=== PATIENT | male | born 1965 | race Caucasian/White ===

== ENCOUNTER 2018-01-26 05:43 | Emergency (ER) | payer BC ==
[2018-01-26] MEDS: diazePAM 5 MG TABLET PO (06:23)
== END 2018-01-26 07:50 | disposition home or self-care (01) ==
LOC: ER 05:43
DX: M79.605 Pain in left leg (principal); M79.604 Pain in right leg; G47.00 Insomnia, unspecified; Z90.89 Acquired absence of other organs
CPT/HCPCS: 93970; 99284

== ENCOUNTER 2018-06-09 09:19 | Emergency (ER) | payer BC ==
[~2018-06-09] VITALS: Ht 193 cm; Wt 122.5 kg
[~2018-06-09 09:19] MED LIST: ZOLP10TA PO
[2018-06-09] MEDS ORDERED: MORPHINE SULFATE 4 MG/ML VIAL. IV ONE (10:15)
--- NOTE | 2018-06-09 10:31 | RAD ---
Examination: PA view the chest with left RIBS HISTORY: History of left-sided rib pain, felt a pop while skiing last night COMPARISON: None available FINDINGS: Low lung volumes and technique accentuates heart size and pulmonary vascularity. Mild bibasilar lung airspace opacities likely atelectasis. No evidence of displaced left rib fracture identified. There is probable old left posterior 10th rib fracture. IMPRESSION: 1. No evidence of displaced left rib fracture. 2. Probable old posterior left 10th rib fracture. Electronically signed by: Jean-Claude Guzman MD (06/09/2018 10:27 AM) [facility]
--- NOTE | 2018-06-09 10:45 | PHYS DOC ---
Past Medical History Past Medical History: Diabetes-Type II, Other Additional Past Medical Histor: PE,GLEOBLASTOMA,NEUROPATHY Past Surgical History: Appendectomy, Other Additional Past Surgical Histo: CRANIOTOMY X'S 2. Alcohol Use: Rarely Drug Use: None Adult General Chief Complaint Chief Complaint: RIB PAIN HPI HPI Patient is a 52 year old male with history of diabetes type 2, glioblastoma diagnosed 1 year ago who presents today complaining of mild pain to the left lateral ribs that began yesterday when he turned around in bed. Patient states he believes he pulled a muscle. He states he heard a pop sound from the left ribs. He states he has previous history of rib fracture on the left side. Patient denies falling. Denies any chest pain or shortness of breath. Patient is currently on Xaletro. Review of Systems Review of Systems Constitutional: Denies fever or chills [] Eyes: Denies change in visual acuity, redness, or eye pain [] HENT: Denies nasal congestion or sore throat [] Respiratory: Reports left rib pain. Denies cough or shortness of breath [] Cardiovascular: No additional information not addressed in HPI [] GI: Denies abdominal pain, nausea, vomiting, bloody stools or diarrhea [] : Denies dysuria or hematuria [] Musculoskeletal: Denies back pain or joint pain [] Integument: Denies rash or skin lesions [] Neurologic: Denies headache, focal weakness or sensory changes [] All other systems were reviewed and found to be within normal limits, except as documented in this note. Current Medications Current Medications Current Medications Medications (Trade) Dose Ordered Sig/[facility] Start Time Stop Time Status Last Admin Dose Admin Morphine Sulfate (Morphine Sulfate) 4 mg 1X ONCE 06/09/18 10:15 06/09/18 10:16 DC 06/09/18 10:41 4 MG Allergies Allergies Allergies Coded Allergies Type Severity Reaction Last Updated Verified No Known Drug Allergies 01/26/18 No Physical Exam Physical Exam Constitutional: Well developed, well nourished, no acute distress, non-toxic appearance. [] HENT: Normocephalic, atraumatic, bilateral external ears normal, oropharynx moist, no oral exudates, nose normal. Whalen face from steroid use. Eyes: PERRLA, EOMI, conjunctiva normal, no discharge. [] Neck: Normal range of motion, no tenderness, supple, no stridor. [] Cardiovascular:Heart rate regular rhythm, no murmur [] Lungs & Thorax: Bilateral breath sounds clear to auscultation, patient is on oxygen 2 L-chronic Abdomen: Bowel sounds normal, soft, no tenderness, no masses, no pulsatile masses. [] Skin: Warm, dry, no erythema, no rash. [] Back: No tenderness, no CVA tenderness. [] Extremities: No tenderness, no cyanosis, no clubbing, ROM intact, no edema. [] Neurologic: Alert and oriented X 3, normal motor function, normal sensory function, no focal deficits noted. [] Psychologic: Affect normal, judgement normal, mood normal. [] Current Patient Data Vital Signs Vital Signs Date Time Temp Pulse Resp B/P (MAP) Pulse Ox O2 Delivery O2 Flow Rate FiO2 06/09/18 10:41 23 95 Nasal Cannula 2.0 06/09/18 09:55 97.7 111 124/66 (85) 97.7 EKG EKG [] Radiology/Procedures Radiology/Procedures [] Course & Med Decision Making Course & Med Decision Making Pertinent Labs and Imaging studies reviewed. (See chart for details) This is a 52-year-old male patient presenting to the ED today with left lateral rib pain that began when he turned in bed. Left rib x-rays including PA chest interpreted by radiologist were negative for any acute findings, noted for probable old posterior left 10th rib fracture. Patient is aware about this. Patient was discharged with cyclobenzaprine. Ice recommended to the area. Elevation recommended. Follow-up with PCP in one week. Dragon Disclaimer Dragon Disclaimer This electronic medical record was generated, in whole or in part, using a voice recognition dictation system. Departure Departure Impression: Primary Impression: Muscle strain of chest wall Disposition: HOME, SELF-CARE Condition: STABLE Referrals: LOTUS HUGHES MD (PCP) follow up in 1-2 weeks Patient Instructions: Muscle Strain, [id number] Additional Instructions: You were seen for left muscle strain, try to ice and elevate the areas. Take the prescribed medications as needed for pain. Come back to the ED at any point symptoms worsen. Scripts Cyclobenzaprine Hcl (CYCLOBENZAPRINE HCL) 10 Mg Tablet 1 TAB PO TID, #30 TAB Prov: DELILAH JEAN APRN 06/09/18 Problem Qualifiers Primary Impression: Muscle strain of chest wall Encounter type: initial encounter Qualified Codes: S29.011A - Strain of muscle and tendon of front wall of thorax, initial encounter DELILAH JEAN APRN Jun 09, 2018 10:45
[2018-06-09] MEDS ORDERED: CYCL10TA2 PO (10:55)
[2018-06-09 11:00] VITALS: BP 126/82
[2018-06-17] MEDS ORDERED: TRAZ-85 PO (15:48)
[2018-06-17] MEDS ORDERED: GLIM4TAB2 PO (15:48)
[2018-06-17] MEDS ORDERED: GABA-586 PO (15:48)
[2018-06-17] MEDS ORDERED: OXYM30SP NS (15:48)
[2018-06-17] MEDS ORDERED: SODI44SP NS (15:48)
[2018-06-17] MEDS ORDERED: POTA20TA82 PO (15:48)
[2018-06-17] MEDS ORDERED: RIVA20TA2 PO (15:48)
[2018-06-17] MEDS ORDERED: COLL30OI TP (15:48)
[2018-06-17] MEDS ORDERED: FURO40TA4 PO (15:48)
[2018-06-17] MEDS ORDERED: DEXA4TAB PO (15:48)
[2018-06-17] MEDS ORDERED: SENN-79 PO (15:48)
[2018-06-17] MEDS ORDERED: MELA3TAB2 PO (15:48)
[2018-06-17] MEDS ORDERED: LEVE500T56 PO (15:48)
== END 2018-06-09 11:30 | disposition home or self-care (01) ==
LOC: ER 09:19
DX: S29.011A Strain of muscle and tendon of front wall of thorax, initial encounter (principal); E11.40 Type 2 diabetes mellitus with diabetic neuropathy, unspecified; Z86.711 Personal history of pulmonary embolism; Z90.89 Acquired absence of other organs; X58.XXXA Exposure to other specified factors, initial encounter; Y93.89 Activity, other specified; Y92.89 Other specified places as the place of occurrence of the external cause; Y99.8 Other external cause status
CPT/HCPCS: 71101; 96374; 99284; J2270